=== PATIENT | female | born 1985 | race Two or more races ===

== ENCOUNTER 2017-06-03 07:07 | Emergency (ER) | payer OTHER ==
[2017-06-03] MEDS ORDERED: LIDOCAINE VISCOUS 2% 15 ML UDC MM STA (07:51)
[2017-06-03] MEDS ORDERED: PHENobarb/HYOSCY/ATROPINE/SCOP 5 ML SYRINGE PO STA (07:51)
[2017-06-03] MEDS ORDERED: MAG HYDROX/AL HYDROX/SIMETH 30 ML UDC PO STA (07:51)
--- NOTE | 2017-06-03 07:54 | ED Physician Documentation ---
PD HPI DYSPNEA - Stated complaint Stated Complaint: DIFFICULTY BREATHING - Chief complaint Chief Complaint: Critical Care - History obtained from History obtained from: Patient - History of Present Illness Timing - onset: How many hours ago (1.5) Timing - onset during: Light activity Timing - details: Still present (but better) Associated symptoms: No: Cough, Chest pain / discomfort Similar symptoms before: Diagnosis (Reports history of similar symptoms about 1 year ago with biliary colic, and then with diagnosis of hiatal hernia.) - Additional information Additional information: The patient is a 31-year-old female who presents with epigastric abdominal pain that started about 1.5 hours prior to arrival, about one half hour after taking a Vicodin tablet. She reports associated shortness of breath. She denies chest pain, cough, fever, or vomiting. She took Pepto-Bismol without relief. She reports history of similar symptoms one year ago when she was diagnosed with billiary colic and underwent cholecystectomy. She had similar symptoms again about 1 month later and was found to have a hiatal hernia. 3 days ago she was started on amoxicillin for a dental infection. She was also prescribed Vicodin for dental pain, and took 1 tablet this morning prior to the onset of her symptoms. Review of Systems Constitutional: denies: Fever Ears: denies: Tinnitus/ringing Nose: denies: Congestion Throat: denies: Sore throat Cardiac: denies: Chest pain / pressure, Palpitations Respiratory: reports: Dyspnea. denies: Cough GI: reports: Abdominal Pain (Epigastric), Nausea. denies: Vomiting, Diarrhea : denies: Dysuria Skin: denies: Rash Musculoskeletal: denies: Neck pain, Back pain, Extremity pain Neurologic: denies: Focal weakness, Numbness, Headache PD PAST MEDICAL HISTORY - Past Medical History Past Medical History: Yes Respiratory: None Neuro: None Endocrine/Autoimmune: None GI: Hiatal hernia - Past Surgical History General: Cholecystectomy - Present Medications Home Medications: Ambulatory Orders Medication Instructions Recorded Confirmed Amoxicillin 500 mg PO TID #20 tablet 06/17/16 06/03/17 Acetaminophen/Cod 300/30 [Tylenol 1 tab PO Q4HR PRN 06/03/17 06/03/17 #3] Promethazine [Phenergan] 25 - 50 mg PO Q6H PRN #10 tab 06/03/17 oxyCODONE/ACET 5/325 [Percocet 5 1 - 2 tab PO Q4-6H PRN #15 tablet 06/03/17 mg/325 mg] - Allergies Allergies/Adverse Reactions: Allergies Allergy/AdvReac Type Severity Reaction Status Date / Time No Known Drug Allergies Allergy Verified 06/03/17 07:23 - Social History Does the pt smoke?: No Smoking Status: Never smoker Does the pt drink ETOH?: No Does the pt have substance abuse?: No - Immunizations Immunizations are current?: Yes PD ED PE NORMAL - Vitals Vital signs reviewed: Yes (Normal) - General General: Alert and oriented X 3, Well developed/nourished - HEENT HEENT: Atraumatic, EOMI, Pharynx benign - Neck Neck: No adenopathy, No JVD - Cardiac Cardiac: RRR, No murmur - Respiratory Respiratory: No respiratory distress, Clear bilaterally - Abdomen Abdomen: Normal bowel sounds, Soft, Non distended, No organomegaly, Other ( Epigastric tenderness to palpation, without rebound tenderness or guarding.) - Back Back: No CVA TTP - Derm Derm: No rash - Extremities Extremities: No edema, No calf tenderness / cord - Neuro Neuro: Alert and oriented X 3, No motor deficit, Normal speech Results - Vitals Vitals: Oxygen O2 Source Room air - EKG (time done) 07:37 Rate: Rate (enter#) (89) Rhythm: NSR [place]: Normal Intervals: Normal MS QRS: Normal Ischemia: Normal ST segments Computer interpretation: Agree with computer PD MEDICAL DECISION MAKING - ED course Complexity details: re-evaluated patient, considered differential, d/w patient, d/w family ED course: The patient's presentation is most consistent with gastroesophageal reflux disease. Her symptoms may have been exacerbated by taking Vicodin this morning , which she was prescribed because of toothache. Her presentation does not suggest biliary colic, pancreatitis, or bowel obstruction. Treatment in the emergency department included administration of Zofran 4 mg orally, and GI cocktail, which completely relieved her symptoms. I discussed with her and her that the antibiotic, amoxicillin, is not likely the cause of her symptoms. She is being discharged with prescription for Phenergan and for Percocet, which I suggested she take half a tablet if needed for toothache. I discussed with her and her the likely diagnosis and potentially exacerbating factors, outpatient follow-up, as well as potentially worrisome signs or symptoms that should prompt reevaluation in the emergency department. Departure - Departure Disposition: 01 Home, Self Care Clinical Impression: GERD (gastroesophageal reflux disease) Qualifiers: Esophagitis presence: esophagitis presence not specified Qualified Code(s): K21.9 - Gastro-esophageal reflux disease without esophagitis Condition: Stable Instructions: ED GERD Follow-Up: [facility] Jim[facility] [Provider Group] Prescriptions: oxyCODONE/ACET 5/325 [Percocet 5 mg/325 mg] 1 - 2 tab PO Q4-6H PRN #15 tablet PRN Reason: Pain Promethazine [Phenergan] 25 - 50 mg PO Q6H PRN #10 tab PRN Reason: Nausea / Vomiting Comments: Drink plenty of fluids. You can use liquid antacid, such as Maalox or Mylanta if you develop recurrent epigastric discomfort. He can use Phenergan as prescribed if needed for nausea. Continue taking amoxicillin as previously prescribed for your dental infection. You can use Percocet rather than Vicodin if needed for dental pain. Follow-up with your primary physician within 1 week. Call to schedule an appointment. Return to the emergency department if you develop increasing abdominal pain, persistent vomiting, or otherwise worsening symptoms. Discharge Date/Time: 06/03/17 10:33
[2017-06-03] MEDS ORDERED: LIDOCAINE VISCOUS 2% 15 ML UDC MM ONE (07:57)
[2017-06-03] MEDS ORDERED: PHENobarb/HYOSCY/ATROPINE/SCOP 5 ML SYRINGE PO ONE (07:58)
[2017-06-03] MEDS ORDERED: MAG HYDROX/AL HYDROX/SIMETH 30 ML UDC ONE (07:59)
[2017-06-03] MEDS ORDERED: ONDANSETRON ODT 4 MG TABLET TL STA (09:57)
[2017-06-03] MEDS ORDERED: ONDANSETRON 4 MG/2 ML VIAL ONE (10:06)
[2017-06-03] MEDS ORDERED: ONDANSETRON ODT 4 MG TABLET ONE (10:07)
[2017-06-03 10:09] VITALS: BP 99/58
== END 2017-06-03 10:33 | disposition home or self-care (01) ==
LOC: ED 07:07
DX: K21.9 Gastro-esophageal reflux disease without esophagitis (principal)
CPT/HCPCS: 93005; 99283; 99284; A9270; Q0162

== ENCOUNTER 2020-09-20 08:00 | Outpatient (CLI) | payer OTHER ==
[2020-09-20 18:53] LABS: MUDS CUTOFF CONCENTRATIONS CUTOFF CONC BELOW:
[2020-09-20 19:16] LABS: BILIRUBIN,URINE NEGATIVE (NEGATIVE); GLUCOSE, URINE (UA) NEGATIVE (NEGATIVE); KETONES,URINE (UA) NEGATIVE (NEGATIVE); LEUKOCYTE ESTERASE, URINE SMALL (NEGATIVE); NITRITE,URINE NEGATIVE (NEGATIVE); OCCULT BLOOD,URINE NEGATIVE (NEGATIVE); PROTEIN,URINE NEGATIVE (NEGATIVE); UROBILINOGEN,URINE 1 (NORMAL) E.U./dL (NORMAL)
[2020-09-20 19:38] LABS: BACTERIA,URINE Rare /HPF (None Seen); CLARITY,URINE CLEAR (CLEAR); RBC,URINE 0-5 /HPF (0-5); SQUAMOUS EPITHELIAL CELL,UR MOD Squamous (<= Few)
[2020-09-20 19:42] LABS: AMPHETAMINE SCREEN,URINE NEGATIVE (NEGATIVE); BENZODIAZEPINES SCREEN, URINE NEGATIVE (NEGATIVE); COCAINE SCREEN URINE NEGATIVE (NEGATIVE); METHADONE SCREEN, URINE NEGATIVE (NEGATIVE); METHAMPHETAMINES SCREEN, URINE NEGATIVE (NEGATIVE); OPIATE SCREEN, URINE NEGATIVE (NEGATIVE); OXYCODONE SCREEN, URINE NEGATIVE (NEGATIVE); PROPOXYPHENE SCREEN, URINE NEGATIVE (NEGATIVE); TRICYCLIC ANTIDEPRESSANT,URINE NEGATIVE (NEGATIVE)
== END 2020-09-20 23:59 | disposition home or self-care (01) ==
LOC: LAB.R 08:00
PROVIDERS: ATTEND Obstetrics & Gynecology
DX: Z32.01 Encounter for pregnancy test, result positive (principal)
CPT/HCPCS: 80306; 81001; 87086

== ENCOUNTER 2020-09-30 14:28 | Outpatient (CLI) | payer OTHER ==
--- NOTE | 2020-09-30 15:44 | Ultrasound Report ---
PROCEDURE: OB First Trimester w/TV INDICATIONS: TEST POSITIVE TECHNIQUE: Real-time endovaginal and transabdominal evaluation of the pelvic organs with image docume ntation. Grayscale and color Doppler techniques utilized. COMPARISON: None. FINDINGS: Last menstrual period: 08/02/2020. Estimated delivery date by last menstrual period: 05/09/2021. First dating scan: 09/30/2020. Estimated delivery date based on first scan: 05/11/2021. Embryo: There is a gestational sac in the uterine fundus measuring 3.6 cm in mean diameter. An embryo is identified with crown-rump length of 1.7 cm. The composite gestational age based on sonographic f eatures is 8 weeks 1 day. heart rate is detected at 174 bpm. The cervix appears closed. Ovaries unremarkable. IMPRESSION: Single live intrauterine gestation with average ultrasound age of 8 weeks 1 day. Size consistent with dates. Reviewed by: Faraz Saul MD on 09/30/2020 3:43 PM PST Approved by: Faraz Saul MD on 09/30/2020 3:43 PM PST Station ID: [id number]
== END 2020-09-30 14:29 | disposition home or self-care (01) ==
LOC: DI 14:28
PROVIDERS: ATTEND Obstetrics & Gynecology
DX: Z32.01 Encounter for pregnancy test, result positive (principal)

== ENCOUNTER 2020-10-04 08:00 | Outpatient (CLI) | payer OTHER ==
[2020-10-04 18:04] LABS: BASOPHILS % (AUTO) 0.4 %; EOSINOPHILS # (AUTO) 0.5 10^3/uL (0.0-0.7); EOSINOPHILS % (AUTO) 4.7 %; HGB - HEMOGLOBIN 11.2 g/dL (12.0-16.0); LYMPHOCYTES # (AUTO) 1.6 10^3/uL (1.5-3.5); LYMPHOCYTES % (AUTO) 15.3 %; MEAN CORPUSCULAR HEMOGLOBIN 27.7 pg (27.0-31.0); MEAN CORPUSCULAR HGB CONC 30.6 g/dL (32.0-36.0); MEAN CORPUSCULAR VOLUME 90.4 fL (81.0-99.0); MEAN PLATELET VOLUME 9.6 fL (7.9-10.8); MONOCYTES # (AUTO) 0.6 10^3/uL (0.0-1.0); MONOCYTES % (AUTO) 6.1 %; NEUTROPHILS # (AUTO) 7.7 10^3/uL (1.5-6.6); NEUTROPHILS % (AUTO) 73.1 %; PLT - PLATELET COUNT 445 10^3/uL (130-450); RED BLOOD COUNT 4.05 10^6/uL (4.20-5.40); RED CELL DISTRIBUTION WIDTH 14.9 % (12.0-15.0); WHITE BLOOD COUNT 10.5 x10^3/uL (4.8-10.8)
[2020-10-05 08:52] LABS: HIV AG/AB 4TH GEN NON-REACTIVE (NON-REACTIVE)
[2020-10-05 12:22] LABS: HEPATITIS B SURFACE ANTIGEN NON-REACTIVE (NON-REACTIVE)
[2020-10-05 12:36] LABS: HEPATITIS C ANTIBODY NON-REACTIVE (NON-REACTIVE)
== END 2020-10-04 23:59 | disposition home or self-care (01) ==
LOC: LAB.WCP 08:00
PROVIDERS: ATTEND Obstetrics & Gynecology
DX: Z32.01 Encounter for pregnancy test, result positive (principal)
CPT/HCPCS: 36415; 81599; 85025; 86592; 86762; 86787; 86803; 86850; 86900; 86901; 87340; 87389

== ENCOUNTER 2020-10-14 08:00 | Outpatient (CLI) | payer OTHER ==
[2020-10-15 23:01] LABS: TRICHOMONAS VAGINALIS DNA NEGATIVE (NEGATIVE)
== END 2020-10-14 23:59 | disposition home or self-care (01) ==
LOC: LAB.R 08:00
PROVIDERS: ATTEND Obstetrics & Gynecology
DX: Z11.3 Encounter for screening for infections with a predominantly sexual mode of transmission (principal)
CPT/HCPCS: 87491; 87591; 87661